=== PATIENT | female | born 1960 | race Two or more races ===

== ENCOUNTER 2017-01-16 18:26 | Emergency (ER) | payer OTHER ==
[~2017-01-16] VITALS: Ht 154.9 cm; Wt 77.1 kg
--- NOTE | 2017-01-16 20:14 | NUR ---
Patient discharged to home in stable conditon. Written and verbal after care instructions given. Patient verbalizes understanding of instructions. Ambulated from ER with stable gait, patient using crutches with stable gait and correct technique. All belongings with patient.
[2017-01-16 20:18] VITALS: BP 123/70
== END 2017-01-16 20:19 | disposition home or self-care (01) ==
LOC: ER 18:26
DX: S93.402A Sprain of unspecified ligament of left ankle, initial encounter (principal); X58.XXXA Exposure to other specified factors, initial encounter; Y93.89 Activity, other specified; Y92.89 Other specified places as the place of occurrence of the external cause; Y99.8 Other external cause status
CPT/HCPCS: A4663